=== PATIENT | female | born 1960 | race Caucasian/White ===

== ENCOUNTER 2022-08-21 07:24 | Day surgery (SDC) | payer OTHER, SELFPAY ==
--- NOTE | 2022-08-20 17:58 | PM.PREOP ---
Pre-operative Note COVID-19 COVID-19 status: Not tested Criteria for continued procedure: Possibility delay results in more complex future surgery or treatment, Increased loss of function and Non-surgical alternatives not available or appropriate per current SOC Interval Note History & Physical reviewed/Exam performed by Physician: Yes Changes to H&P: No
--- NOTE | 2022-08-20 18:00 | P.OP_ITS ---
Operative Date/Time/Diagnoses Date of procedure: 08/21/22 Time of procedure: 09:00 Pre-op diagnosis: Bilateral functional dermatochalasis Procedure & Clinicians Procedure: Date of service: August 21, 2022 Preoperative diagnoses: 1. Bilateral upper lid dermatochalasis 2. Asthma 3. Hypertension 4. Arthritis Postoperative diagnoses: 1. Bilateral upper lid dermatochalasis Procedure: Bilateral upper blepharoplasty Surgeon: Pham Varela MD Complications: none Specimen: None Blood loss: Less than 3 mL Anesthesia: Local infiltration with monitored standby. Anesthesiologist: Abdulkadir Cherry M.D. Indications: Bilateral upper lids obstructing superior vision. Preoperative external photographs taken and loss of vision to within 2 mm of marginal light reflex. Functional surgery. Patient has significant bilateral upper lid de rmatochalasis with downturn eyelashes and hooding. Her lids obscuring her vision are irritating and she says that she is having to hold them up in order to see better. This loss of vision is causing difficulty with both driving and reading. Visual gaspar were performed and showed overhanging loss to within 20? of fixation which improved with taping. Patient desires functional surgery in order to see better. Procedure: In the preoperative holding area the amount skin and subcutaneous tissue to be removed was marked with indelible ink. The contours were carefully checked for symmetry and planned procedure discussed with the patient. The patient was taken to the operating room. IV sedation was given. Proparacaine drops were placed in both eyes for comfort. Local infiltration of anesthetic 2.5 cc into each upper lid, consisting of 1% xylocaine with epinephrine, normal saline and 1 cc hyluronidase was placed. This was then supplemented with full strength 2% xylocaine with epinephrine, 0.5% bupivacaine, and 1 cc hyalurondase. The face was prepped in an open manner. Attention was placed to the right upper lid. Using the previous new a number 15. Bard-Jovan blade was used to incise a skin muscle flap. The flap was lifted and removed. Cautery was applied as needed. Contouring of the muscle belly was also performed. Exploration of the nasal and preoperneurotic fat pads were performed removal and contouring with hemostat and scissors as well as cautery were performed. The lid was then closed with running and interrupted 6 0 Vicryl sutures. Same procedure was repeated for the left upper lid. The Betadine was removed. Erythromycin ophthalmic ointment was placed to suture line. She returned to recovery room in stable condition. Instructions for postoperative cold packs were reviewed. Pham Varela MD. Same procedure as scheduled: Yes
[2022-08-21] MEDS: LACTATED RINGERS 1,000 ML 100 ML IV (08:10)
[2022-08-21 08:11] VITALS: BP 112/69; PULSE 71; RESP 18; O2SAT 99; BMI 26.2
[2022-08-21] MEDS: ERYTHROMYCIN OPHTH 1 GM OINT 1 APPLIC EYE-BOTH (09:46)
[2022-08-21] MEDS: LIDOCAINE 1% W/EPI 20 ML INJ (09:47)
[2022-08-21] MEDS: LIDOCAINE 2% W/EPI INJ 20 ML INJ (09:48)
[2022-08-21] MEDS: PROPARACAINE 0.5% OPHTH SOL 2 DROPS EYE-BOTH (09:49)
[2022-08-21 10:15] VITALS: BP 108/71; PULSE 73; RESP 12; TEMP 36.5; O2SAT 98
== END 2022-08-21 10:50 | disposition home or self-care (01) ==
LOC: OR 07:27
PROVIDERS: PCP Physician Assistant Medical; Referring Provider Ophthalmology; Visit Provider Ophthalmology
PROC: (CPT 15823; principal; 2022-08-21 08:45)
DX: H02.834 Dermatochalasis of left upper eyelid (principal); H02.831 Dermatochalasis of right upper eyelid; J45.909 Unspecified asthma, uncomplicated; I10 Essential (primary) hypertension
CPT/HCPCS: 15823; J2704